=== PATIENT | male | born 1965 | race Caucasian/White ===

== ENCOUNTER 2019-06-30 11:50 | Emergency (ER) | payer OTHER ==
[~2019-06-30] VITALS: Ht 175.3 cm; Wt 117.9 kg
[2019-06-30] MEDS ORDERED: NORCO 10-325 T1 EACH PO (12:07)
[2019-06-30] MEDS ORDERED: SYMBICORT160 MCG/4. INH (12:07)
[2019-06-30] MEDS ORDERED: PROAIR HFA8.5 GM INH (12:07)
[2019-06-30] MEDS ORDERED: BYSTOLIC10 MG PO (12:10)
[2019-06-30] MEDS ORDERED: LIPITOR80 MG PO (12:10)
[2019-06-30 12:11] LABS: ABSOLUTE NEUTROPHILS 3.9 thou/uL (1.4-8.2); BASOPHILS 0.4 % (0.0-2.0); EOSINOPHILS 1.5 % (0.0-3.0); HEMATOCRIT 42.6 % (42.0-52.0); HEMOGLOBIN 14.3 gm/dL (14.0-18.0); LYMPHOCYTES 23.7 % (24.0-44.0); MCH 31.6 pg (26.0-34.0); MCHC 33.5 g/dL (28.0-37.0); MCV 94.1 fL (80.0-100.0); MONOCYTES 5.2 % (1.0-8.0); PLATELET COUNT 130 thou/uL (150-400); POLYS 69.2 % (36.0-66.0); RBC 4.53 mil/uL (4.50-6.00); RDW 12.8 % (10.5-14.5); WBC 5.6 thou/uL (4.0-11.0)
[2019-06-30] MEDS ORDERED: CELEXA 20 MG TA20 MG PO (12:11)
[2019-06-30] MEDS ORDERED: ZESTRIL5 MG PO (12:11)
[2019-06-30] MEDS ORDERED: LEXAPRO20 MG PO (12:12)
[2019-06-30] MEDS ORDERED: ADULT ASPIRIN R81 MG PO (12:12)
[2019-06-30] MEDS ORDERED: ALPRAZOLAM 0.50.5 MG PO (12:13)
[2019-06-30 12:24] LABS: ANION GAP 6 mmol/L (7-16); BUN 10 mg/dL (7-18); CALCIUM 9.5 mg/dL (8.5-10.1); CHLORIDE 98 mmol/L (98-107); CO2 32 mmol/L (21-32); GLUCOSE 140 mg/dL (74-106); SODIUM 136 mmol/L (136-145)
[2019-06-30 12:36] LABS: ALBUMIN 4.2 g/dL (3.4-5.0); SGOT 18 U/L (15-37); SGPT 28 U/L (30-65); TOTAL BILIRUBIN 0.3 mg/dL (<0.1-1.0); TOTAL PROTEIN 7.4 g/dL (6.4-8.2); TROPONIN-I <0.06 ng/mL (<0.06)
--- NOTE | 2019-06-30 14:31 | EKG ---
[facility] [place] [address] ELECTROCARDIOGRAM REPORT Name: ANDRAE MCCLELLAN Room #: REG [facility]#: [id number] Admission: 06/30/19 Attend Phys: Discharge: Date of : 65 Report #: [id number] THIS REPORT FOR: cc: Keyon Mitchell MD, Thomas P. MD Lundgren, Craig H. 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: [facility] : 1965 Requested By: Felicity Enriquez Order Number: [id number] MD: Champ Rahman Measurements Intervals [place] Rate: 55 P: 112 [place]: 217 QRS: 52 QRSD: 79 T: 72 QT: 402 QTc: 385 Interpretive Statements Sinus rhythm Prolonged [place] interval Early R-wave progression Minimal, diffuse ST segment elevation Compared to ECG 04/29/2007 06:37:17 First degree AV block now present Electronically Signed On 06-30-2019 14:30:04 CDT by Champ Rahman [email or web address] <ELECTRONICALLY SIGNED> By: Champ Rahman MD, [facility] 06/30/19 1430 1148 1148 Champ Rahman MD, [facility] /EPI
--- NOTE | 2019-06-30 14:33 | EKG ---
[facility] [place] [address] ELECTROCARDIOGRAM REPORT Name: ANDRAE MCCLELLAN Room #: REG [facility]#: [id number] Admission: 06/30/19 Attend Phys: Discharge: Date of : 65 Report #: [id number] THIS REPORT FOR: cc: Keyon Mitchell MD, Thomas P. MD Lundgren, Craig H. 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: : 1965 Requested By: Felicity Enriquez Order Number: [id number] MD: Champ Rahman Measurements Intervals [place] Rate: 54 P: 68 ND: 210 QRS: 44 QRSD: 73 T: 65 QT: 404 QTc: 383 Interpretive Statements Sinus bradycardia Prolonged [place] interval Abnormal R-wave progression, early transition Minimal, diffuse ST segment elevation Compared to ECG 04/29/2007 06:37:17 No significant change was found Electronically Signed On 06-30-2019 14:32:30 CDT by Champ Rahman [email or web address] <ELECTRONICALLY SIGNED> By: Champ Rahman MD, [facility] 06/30/19 1432 1356 1356 Champ Rahman MD, [facility] /EPI
[2019-06-30 15:17] VITALS: BP 104/64
== END 2019-06-30 15:20 | disposition home or self-care (01) ==
LOC: ER 11:50
PROVIDERS: Physician Assistant
DX: R42 Dizziness and giddiness (principal); R11.0 Nausea; E78.5 Hyperlipidemia, unspecified; F17.210 Nicotine dependence, cigarettes, uncomplicated; Z79.899 Other long term (current) drug therapy; Z79.82 Long term (current) use of aspirin

== ENCOUNTER → 2019-07-02 | Outpatient (CLI) | payer OTHER ==
[~2019-07-02] MED LIST: ADULT ASPIRIN R81 MG PO; ALPRAZOLAM 0.50.5 MG PO; BYSTOLIC10 MG PO; CELEXA 20 MG TA20 MG PO; EFFIENT10 MG PO; LEXAPRO20 MG PO; LIPITOR80 MG PO; NORCO 10-325 T1 EACH PO; PROAIR HFA8.5 GM INH; SYMBICORT160 MCG/4. INH; VITAMIN D35000 UNI2 PO; ZESTRIL5 MG PO
== END ==
LOC: SJCVCIMAG 08:31
DX: I65.23 Occlusion and stenosis of bilateral carotid arteries (principal); I35.8 Other nonrheumatic aortic valve disorders; I11.9 Hypertensive heart disease without heart failure; R00.1 Bradycardia, unspecified; R53.83 Other fatigue; I25.810 Atherosclerosis of coronary artery bypass graft(s) without angina pectoris; E78.5 Hyperlipidemia, unspecified; F17.200 Nicotine dependence, unspecified, uncomplicated; I25.2 Old myocardial infarction; Z79.82 Long term (current) use of aspirin; Z95.1 Presence of aortocoronary bypass graft; Z79.899 Other long term (current) drug therapy

== ENCOUNTER 2019-07-08 06:36 | Observation (INO) | payer OTHER ==
[~2019-07-08] VITALS: Ht 175.3 cm; Wt 116.1 kg
[2019-07-08] VITALS (11 sets, daily range): BP systolic 95–132; BP diastolic 64–86
[~2019-07-08 06:36] MED LIST changes: -EFFIENT10 MG PO; -VITAMIN D35000 UNI2 PO
[2019-07-08] MEDS ORDERED: VITAMIN D35000 UNI2 PO ×2 (07:25)
[2019-07-08 07:45] LABS: HEMATOCRIT 40.5 % (42.0-52.0); HEMOGLOBIN 13.7 gm/dL (14.0-18.0); MCH 32.2 pg (26.0-34.0); MCHC 33.9 g/dL (28.0-37.0); MCV 94.9 fL (80.0-100.0); RBC 4.26 mil/uL (4.50-6.00); RDW 12.5 % (10.5-14.5); WBC 4.9 thou/uL (4.0-11.0)
[2019-07-08 07:49] LABS: CALCIUM 9.1 mg/dL (8.5-10.1); CREATININE 1.1 mg/dL (0.7-1.3); POTASSIUM 4.1 mmol/L (3.5-5.1)
--- NOTE | 2019-07-08 09:52 | EKG ---
[facility] [place] [address] ELECTROCARDIOGRAM REPORT Name: ANDRAE MCCLELLAN Room #: REG [facility].#: [id number] Admission: 07/08/19 Attend Phys: Juanpablo Acevedo MD Discharge: Date of : 65 Report #: [id number] THIS REPORT FOR: cc: Keyon Mitchell MD, Thomas P. 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: Aneta Woody : 1965 Requested By: Juanpablo Acevedo Order Number: [id number] MD: Champ Rahman Measurements Intervals [place] Rate: 66 P: 68 PA: 201 QRS: 51 QRSD: 79 T: 79 QT: 368 QTc: 386 Interpretive Statements Sinus rhythm Minimal ST elevation, inferior leads Compared to ECG 06/30/2019 13:56:51 Sinus bradycardia no longer present Electronically Signed On 07-08-2019 9:51:11 CDT by Champ Rahman [email or web address] <ELECTRONICALLY SIGNED> By: Champ Rahman MD, [facility]ACC 07/08/19 0951 0735 0735 Champ Rahman MD, [facility] /EPI
--- NOTE | 2019-07-08 11:25 | EKG ---
[facility] [place] [address] ELECTROCARDIOGRAM REPORT Name: ANDRAE MCCLELLAN Room #: REG [facility].#: [id number] Admission: 07/08/19 Attend Phys: Juanpablo Acevedo MD Discharge: Date of : 65 Report #: [id number] THIS REPORT FOR: cc: Keyon Mitchell MD, Thomas P. MD Couchonnal, Luis F. 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: Ethan NELSON : 1965 Requested By: Juanpablo Acevedo Order Number: [id number] MD: Willem Garrett Measurements Intervals [place] Rate: 63 P: 94 PA: 212 QRS: 57 QRSD: 73 T: 90 QT: 373 QTc: 382 Interpretive Statements Sinus rhythm Prolonged [place] interval Compared to ECG 07/08/2019 07:35:46 First degree AV block now present Myocardial infarct finding now present Electronically Signed On 07-08-2019 11:23:49 CDT by Willem Garrett [email or web address] <ELECTRONICALLY SIGNED> By: Willem Garrett MD 07/08/19 1123 1046 1046 Willem Garrett MD /EPI
--- NOTE | 2019-07-08 11:30 | CATHLAB ---
[facility] [place] [address] INVASIVE PROCEDURE REPORT Name: ANDRAE MCCLELLAN Room #: REG [facility]#: [id number] Admission: 07/08/19 Attend Phys: Juanpablo Acevedo MD Discharge: Date of : 65 Report #: [id number] THIS REPORT FOR: cc: Keyon Mitchell MD, Thomas P. MD Park, Jin S. MD ~ APPROVED REPORT Study performed: 07/08/2019 08:32:22 Patient Details Patient Status: Out-Patient Room #: The patient is a 54 year-old male Event Personnel Juanpablo Acevedo Marketing Project Manager, Tori Thomas RN RN, Karina Matamoros Jackson, Sherra RTClaudine Monitor Procedures Performed Art Access - R femoral artery* Left Heart Cath Coronaries, Bypass Grafts 1700089 LHCCORCABG RASHID Revasc Graft Single RCA C9604 SVGREVSING 74541 Initial Mod Sed Same Phys/QHP Gr5y 937286 34110 Initial Mod Sed Same Phys/QHP Gr5y 328006 91197 Mod Sed Same Phys/QHP Ea 079264 Hemostasis w/ Mynx Indication Dizziness and vertigo, Dyspnea, Positive stress test, The patient presented with his anginal equivalent dizziness and fatigue. Risk Factors Hypercholesterolemia, Coronary Artery DiseaseHypertension, Tobacco History () Previous Procedures/Diagnoses Previous CABG, Previous [place] Procedure Narrative The Right Groin^ was infiltrated with 1% Lidocaine subcutaneous anesthesia. A PINNACLE 4FR Sheath #[id number] sheath was inserted into the RFA^. Coronary angiography was performed using coronary diagnostic catheters. The right coronary system was accessed and visualized with a JR4 catheter. The left coronary system was accessed and visualized with a JL4 catheter. The left ventricle was accessed and visualized with a PIGTAIL catheter. Left ventriculogram was [facility] [address] [place] [address] INVASIVE PROCEDURE REPORT Name: MARIAANDRAE MONTERROSO Room #: REG [facility]#: [id number] Admission: 07/08/19 Attend Phys: Juanpablo Acevedo MD Discharge: Date of : 65 Report #: [id number] performed in 30 degree projection. Pre-demployment femoral angiogram was performed . Closure device was deployed with a 6 Fr MYNXGRIP 6/7F #[id number]. The patient tolerated the procedure well and there were no complications associated with the procedure. There was no hematoma. Intraoperative Conscious Sedation Sedation start time: 820 Case end Time: 950 Fentanyl 100 mcg Versed 1 mg Fluoro Time: 27.50 minutes Dose: DAP 91709.00 cGycm2 5901 mGy Contrast Type and Amount: Omnipaque 260 ml Coronary Angiography The patient's coronary anatomy is right dominant. [place] Artery Percent Stenosis Left Main: % Prox LAD: 70 % Mid/Distal LAD: % Circumflex: 70 % RCA: 100 % Ramus: % Diagnostic Cath LAD There is a patent CHRISTIE graft with an end-to-side anastomosis to the mid LAD. Diagonal 1 This is a small to moderate size caliber vessel, with mild proximal disease. Diagonal 2 This is a moderate size caliber vessel, patent with no flow-limiting lesions. OM1 This is a moderate size caliber vessel, traversing the lateral wall. There is a patent T graft off the CHRISTIE with an end to side anastomosis to OM1. This vessel is patent with no flow-limiting lesions. R PDA There is a free radial artery conduit with an end to side anastomosis to the PDA. There is a severe, 95% obstruction in the proximal segment of this arterial conduit. Left Ventriculography Left Ventriculography was not performed. Ejection Fraction was >55% based off patient's Nuclear Cardiac Stress Test. An LVEDP was measured and there is no gradient across the outflow tract. Hemodynamics The aortic pressure is 103/66 mmHg with a mean of 88 mmHg. The left ventricular pressure is 98/11 mmHg with a mean of mmHg. The left ventricular end diastolic pressure is 20 mmHg. [facility] [address] [place] [address] INVASIVE PROCEDURE REPORT Name: ANDRAE MCCLELLAN Room #: REG [facility] [id number] Admission: 07/08/19 Attend Phys: Juanpablo Acevedo MD Discharge: Date of : 65 Report #: [id number] PCI Technique Lesion Percutaneous coronary intervention was performed on the free radial artery conduit to the PDA. The lesion stenosis prior to intervention was 95% with FIDEL 3 flow. A VISTA 6FR AR 1 #[id number] Guide Catheter was used to engage the ostium. A Luge Wire .014 x 182CM #[id number] Interventional Guidewire was used to cross the lesion. BALLOON DILATION A Balloon catheter Euphora RX 2.0 x12 #[id number] was inserted and inflated up to 8atm for 25seconds. Additional Inflation: 8atm for 14seconds. STENT DEPLOYMENT A drug-eluting stent RESOLUTE REILLY RX 2.25 X 15 #[id number] was inserted and inflated up to 16atm for 40seconds. Additional Inflation: 20atm for 9seconds. POST STENT DEPLOYMENT BALLOON DILATION A Balloon catheter TREK NC RX 2.5 X 12 #[id number] was inserted and inflated up to 18atm for 17seconds. Additional Inflation: 20atm for 21seconds. Final angiography reveals 0 % stenosis with FIDEL 3 flow. PCI Technique Lesion 2 Percutaneous Coronary Intervention was performed on the Unspecified. Conclusion 1. Successful insertion of a drug-eluting stent into the proximal segment of the arterial conduit to the PDA. 2. There is a patent CHRISTIE graft to the LAD. 3. There is a patent T graft off the CHRISTIE with an end to side anastomosis to OM1. 4. Recommend dual antiplatelet therapy and aggressive risk factor management. <ELECTRONICALLY SIGNED> By: Juanpablo Acevedo MD 07/08/19 1128 Juanpablo Acevedo MD /INF
--- NOTE | 2019-07-08 18:13 | NUR ---
PATIENT ADMIT FROM CARDIAC CATH WITH STENT PLACE TO OCCLUDED GRAPH PROXIMAL SVG -RCA. RIGHT GROIN SIGHT REMAINED S/D/I DURING LEG IMMOBALIZATION. TOLERATING HEART HEALTH DIET. FLUIDS ADMISINTER ORDERED. PT WILL DC TOMORROW. PT IS ON OBSERVATION. ALERT X4, FROM HOME. UP AB ANA FOR BATHROOM. CALL LIGHT IN REACH.
[2019-07-09 04:45] VITALS: BP 119/74
[2019-07-09 05:47] LABS: HEMATOCRIT 41.4 % (42.0-52.0); HEMOGLOBIN 13.8 gm/dL (14.0-18.0); MCH 31.6 pg (26.0-34.0); MCHC 33.3 g/dL (28.0-37.0); MCV 94.9 fL (80.0-100.0); RBC 4.36 mil/uL (4.50-6.00); RDW 12.5 % (10.5-14.5); WBC 6.6 thou/uL (4.0-11.0)
[2019-07-09 06:08] LABS: ALBUMIN 3.7 g/dL (3.4-5.0); CALCIUM 8.8 mg/dL (8.5-10.1); POTASSIUM 4.1 mmol/L (3.5-5.1); TOTAL BILIRUBIN 0.4 mg/dL (<0.1-1.0); TOTAL PROTEIN 6.6 g/dL (6.4-8.2)
[2019-07-09 07:45] VITALS: BP 125/77
--- NOTE | 2019-07-09 07:52 | NUR ---
ASSUMED CARE OF PATIENT AT 1900. ASSESSMENTS COMPLETED. TELE STRIPS PRINTED. PATIENT HAS A RIGHT GROIN SITE WHICH IS WITHOUT ANY DRAINAGE, HEMATOMA OR EDEMA. PATIENT DENIES ANY CHEST PAIN. PATIENT ANTICIPATING D/C SATURDAY A.M. PATIENT TO CONTINUE WITH POC.
[2019-07-09] MEDS ORDERED: EFFIENT10 MG PO ×2 (09:01)
--- NOTE | 2019-07-09 09:25 | EKG ---
[facility] [place] [address] ELECTROCARDIOGRAM REPORT Name: ANDRAE MCCLELLAN Room #: 209-[facility] M.R.#: [id number] Admission: 07/08/19 Attend Phys: Juanpablo Acevedo MD Discharge: Date of : 65 Report #: [id number] THIS REPORT FOR: cc: Keyon Mitchell MD, Thomas P. MD Lundgren, Craig H. MD [facility] ~ THIS REPORT FOR: //name// [facility] Test Date: 2019-07-09 Test Time: 07:37:43 Pat Name: ANDRAE MCCLELLAN Department: Room: 209 Gender: M Care Specialist: TAZ : 1965 Requested By: Juanpablo Acevedo Order Number: [id number] MD: Champ Rahman Measurements Intervals [place] Rate: 62 P: 50 VT: 188 QRS: 40 QRSD: 79 T: 84 QT: 384 QTc: 390 Interpretive Statements Sinus rhythm Early R wave progression Minimal ST elevation, inferior leads Compared to ECG 07/08/2019 10:46:49 No significant change was found Electronically Signed On 07-09-2019 9:23:46 CDT by Champ Rahman [email or web address] <ELECTRONICALLY SIGNED> By: Champ Rahman MD, [facility] 07/09/19 0923 0737 0737 Champ Rahman MD, [facility] /EPI
[2019-07-09 09:31] VITALS: BP 127/77
== END 2019-07-09 10:17 | disposition home or self-care (01) ==
LOC: CATH 06:36 → 2N 11:30 → CATH 12:22 → ENTRNSPT 07-09 10:04 → 2N 07-09 10:17
PROVIDERS: ADMIT Internal Medicine Cardiovascular Disease
DX: I25.10 Atherosclerotic heart disease of native coronary artery without angina pectoris (principal); E78.00 Pure hypercholesterolemia, unspecified; I10 Essential (primary) hypertension; Z87.891 Personal history of nicotine dependence